=== PATIENT | female | born 1945 | race Caucasian/White ===

== ENCOUNTER 2019-05-19 09:02 | Outpatient (CLI) | payer MEDICARE, SELFPAY ==
--- NOTE | 2019-05-19 09:21 | CT_ITS ---
WS: [id number] CT scan of the neck. Additional two-dimensional coronal and sagittal reconstruction was performed. 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 DLP: 670.[address] scans at [facility] use at least one of these dose optimization techniques: automat ed exposure control; mA and/or kV adjustment per patient size (includes targeted exams where dose is matched to clinical indication); or iterative reconstruction. Findings: No lymphadenopathy is noted. The salivary glands are unremarkable. There is no prevertebral soft tiss ue swelling. The larynx is symmetric. The thyroid gland shows normal enhancement. The floor of the mo uth and parapharyngeal spaces are normal. The oral cavity is unremarkable. The carotid arteries bifurcate normally. 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 The lung apices show no abnormalities. The portions of the intracranial circulation which are seen d emonstrate no abnormalities. No erosion of the skull or skull base is seen. A right mastoidectomy has been performed. CT/CT neck w con* [id number] Impression: 1. Negative for significant soft tissue abnormalities the neck. 2. Right mastoidectomy.
--- NOTE | 2019-05-19 09:21 | FL_ITS ---
WS: [id number] Modified barium swallow, 05/19/2019 Clinical Data: Other dysphagia Comparison: None. Fluoroscopy time: 2.2 minutes. Findings: Good bolus propulsion for thin and thick liquids occurred. There was slight vallecular and piriform s inus pooling but the pooling cleared with multiple swallows and different consistencies of liquids. P udding bolus propelled the barium tablet into the esophagus. There is no evidence of any esophageal p roblems. FL/FL barium swallow modifd [id number] Impression: 1. Good bolus propulsion with minimal vallecular and piriform sinus pooling. 2. No aspiration or penetration was noted.
[2019-05-19 10:07] LABS: Blood Urea Nitrogen 13 mg/dL (8-23)
[2019-05-19] MEDS: iodixanol 320 mg/mL 100mL Btl IV (10:34)
== END 2019-05-19 09:03 | disposition home or self-care (01) ==
LOC: RAD 09:03
PROVIDERS: Family Provider Family Medicine; PCP Family Medicine; Visit Provider Specialist
DX: C02.9 Malignant neoplasm of tongue, unspecified (principal); R49.8 Other voice and resonance disorders; J38.7 Other diseases of larynx
CPT/HCPCS: 70491; 74230; 82565; 84520; 92611

== ENCOUNTER 2020-01-10 08:51 | Outpatient (CLI) | payer MEDICARE, SELFPAY ==
--- NOTE | 2020-01-10 09:20 | MR_ITS ---
WS: [id number] MRI LEFT SHOULDER NONCONTRAST TECHNIQUE: Sagittal T2, coronal T1, T2 and proton density imaging. Axial gradient PDE imaging. CLINICAL INFORMATION: LEFT ROTATOR CUFF SYNDROME COMPARISON: None. FINDINGS: Moderate to advanced arthritis at the AC joint with mild downsloping acromion. Slight subacromial spu rring. Mild edema at the AC joint. Diffuse chronic thinning of the supraspinatus which is intact. Mild tendinopathy in the distal supras pinatus.Normal infraspinatus. Normal teres minor. Normal subscapularis. Normal biceps tendon in the b icipital groove. Degenerative fraying of the glenoid labrum which appears intact. Biceps labral ancho r appears intact. Hypertrophic spurring along the medial humeral head. MR/MR shoulder LT wo con* [id number] IMPRESSION: 1. Moderate degenerative arthritis at the AC joint with mild downsloping acrom ion. 2. Tendinopathy in the distal supraspinatus with chronic thinning. No full-thi ckness rotator cuff tears. Rotator cuff is otherwise intact. 3. Normal biceps tendon and biceps labral anchor. 4. Degenerative fraying glenoid labrum. 5. Hypertrophic spurring along the medial humeral head.
== END 2020-01-10 08:52 | disposition home or self-care (01) ==
LOC: RADWPI 09:01
PROVIDERS: Family Provider Family Medicine; PCP Family Medicine; Visit Provider Family Medicine
DX: M75.102 Unspecified rotator cuff tear or rupture of left shoulder, not specified as traumatic (principal); M19.012 Primary osteoarthritis, left shoulder
CPT/HCPCS: 73221

== ENCOUNTER → 2020-02-19 11:56 | Outpatient (BNVA) | payer MEDICARE, SELFPAY | PROVIDERS: Family Provider Family Medicine; PCP Family Medicine; Referring Provider Family Medicine; Visit Provider Specialist | DX: M19.012 Primary osteoarthritis, left shoulder (principal); M25.512 Pain in left shoulder | CPT/HCPCS: 73030 ==

== ENCOUNTER 2020-03-06 06:00 | Outpatient (RCR) | payer MEDICARE, SELFPAY | END 2020-03-09 23:59 | disposition home or self-care (01) | LOC: SPT 06:00 | PROVIDERS: PCP Family Medicine; Referring Provider Specialist; Visit Provider Specialist | DX: M25.512 Pain in left shoulder (principal) | CPT/HCPCS: 97110; 97163 ==

== ENCOUNTER → 2020-04-14 10:21 | Outpatient (BNVA) | payer MEDICARE, SELFPAY | PROVIDERS: PCP Family Medicine; Visit Provider Specialist | DX: M19.012 Primary osteoarthritis, left shoulder (principal); M75.82 Other shoulder lesions, left shoulder | CPT/HCPCS: 87635 ==

== ENCOUNTER 2020-04-19 07:00 | Day surgery (SDC) | payer MEDICARE, SELFPAY ==
[2020-04-18 13:55] VITALS: BMI 35.4
[2020-04-19] VITALS (10 sets, daily range): BP systolic 157–191; BP diastolic 73–104; PULSE 60–83; RESP 16–20; TEMP 36.1–36.5; O2SAT 96–100
[2020-04-19] MEDS: sodium chloride 0.9% 1,000 ML 30 ML IV (07:40)
[2020-04-19] MEDS: midazolam 1 mg/mL INJ 5 ML 5 MG IVP (07:45)
--- NOTE | 2020-04-19 08:07 | P.HPUD_ITS ---
Surgery/Procedure H&P Update DATE OF PROCEDURE: April 19, 2020 DATE H&P PERFORMED: 04/18/20 H&P UPDATE INFORMATION: I have reviewed H&P completed within last 30 days, I have examined patient prior to procedure, No changes to prior documentation and H&P is in [facility] EMR on date indicated PREOP DIAGNOSIS: Left shoulder AC DJD with impingement PLANNED PROCEDURE: Operation Date: 04/19/20 09:15 Proposed Procedures p Left Acromioplasty left shoulder with distal clavicle resection 54482 M19.012 M75.82(Left) - Ashley Gupta MD s Distal Clavicle Resection(Left) - Ashley Gupta MD Related Problem List Diagnoses (1) Osteoarthritis of left acromioclavicular joint: (2) Impingement syndrome, shoulder, left:
--- NOTE | 2020-04-19 08:15 | ANES.PREANE2 ---
Pre-Anesthetic Assessment Pre-Anesthetic Assessment: Height/Weight: Height 1.6 m Weight 90.718 kg Temp Pulse Resp BP Pulse Ox 97.7 F 82 18 191/92 98 04/19/20 07:18 04/19/20 07:18 04/19/20 07:18 04/19/20 07:18 04/19/20 07:18 Preop Diagnosis: Left shoulder AC DJD with impingement Proposed Procedure: Operation Date: 04/19/20 09:15 Proposed Procedures p Left Acromioplasty left shoulder with distal clavicle resection 92752 M19.012 M75.82(Left) - Ashley Gupta MD s Distal Clavicle Resection(Left) - Ashley Gupta MD Familial anesthetic complications: shivering Was Beta William taken within 24 hours: N/A Last intake: Intake Last Liquid Date 04/18/20 Last Liquid Time 19:00 Last Solid Date 04/18/20 Last Solid Time 17:00 Social: Social History: No alcohol and No tobacco Exam: Pre-Anes Outpt Exam: alert, oriented x 3, clear to auscultation bilaterally and regular rate & rhythm Airway: MP: 3 Dentition: Full CV/HEM: CV/HEM: CAD (stents X2 last placed > 1 year ago) Comments: Patient quit plavix on the , she has been off longer than 7 days because her surgery had to be rescheduled GI: GI: GERD Musc/skel: Comments: hx throat cancer 5 years ago, has since been intubated. Most recent neck CT (2019) without any gross abnormalities Anesthetic Plan: ASA status: 3 Risk of > 500 ml blood loss (7ml/kg in children): No Meds/Allergies Current Medications: Current Medications Generic Name Dose Route Start Last Admin Trade Name Freq PRN Reason Stop Dose Admin Sodium Chloride 1,000 mls @ 30 ml s/hr 04/19/20 07:15 04/19/20 07:40 Sodium Chloride 0.9% IV 04/20/20 07:14 30 mls/hr .Q24H KAMINI Administration PFSH Anesthesia PFSH: Social History Smoking and tobacco status: never smoked Alcohol intake: current Alcohol intake frequency: holidays/special occasions only Data Anesthesia CBC & Chem 7: 04/19/20 08:00 04/19/20 08:00 Cardiac Studies: No Data to Display
[2020-04-19 08:25] LABS: Add Urine Microscopic? YES; Bilirubin Urine Neg (Negative); Blood Urine 3+ (Negative); Glucose Urine UA Norm (Normal); Ketones Urine 1+ (Negative); Leukocyte Esterase Urine Negative (Negative); Nitrate Urine Negative (Negative); Protein Urine Neg (Negative); Specific Gravity, Urine 1.015 (1.005-1.030); Urine Appearance Clear (CLEAR); Urine Color Yellow (Yellow); Urobilinogen Urine Norm (Negative)
[2020-04-19 08:26] LABS: Add Urine Culture? Yes; Bacteria Urine TRACE /hpf; Mucus Urine 1+ /hpf; Squamous Epithelial Cell Urine 0-4 /hpf (0-5)
[2020-04-19 08:28] LABS: Alanine Aminotransferase 7 U/L (0-33); Albumin Level 4.2 g/dL (3.5-5.2); Alkaline Phosphatase 52 IU/L (35-105); Aspartate Amino Transferase 18 U/L (0-32); Blood Urea Nitrogen 10 mg/dL (8-23); Calcium 9.3 mg/dL (8.5-10.5); Carbon Dioxide 25 mmol/L (22-29); Chloride 104 mmol/L (98-107); Globulin 2.6 g/dL (1.3-4.6); Glucose 102 mg/dL (65-115); Osmolality Calculated 289 mOsm/kg (285-295); Sodium 140 mmol/L (136-145); Total Bilirubin 0.3 mg/dL (0.15-1.2); Total Protein 6.8 g/dL (6.6-8.7)
[2020-04-19] MEDS: vancomycin 1,000 MG in sodium chloride 0.9% 250 ML 250 MG IV (08:45)
--- NOTE | 2020-04-19 09:33 | ANES.PROC ---
Anesthesia Procedures Procedure/Date: 04/19/20 Nerve Block ^: Nerve Block 1: Main Anesthesia: general anesthesia Time Out Performed: Yes Consent: requested by attending/covering physician, from patient, risks and benefits reviewed and patient agrees to proceed Nerve block location: interscalene (L) Anesthesia monitors applied: pulse oximetry, EKG, BP cuff and oxygen Nerve block position: semi sitting Anesthetic Used: ropivicaine 0.5% and with decadron (4 mg) Amount of anesthesia used (mL): 20 Ultrasound used to: recognize landmarks, visualize and ID brachial plexus and visualize and ID interscalene groove Nerve Stimulator Used?: No Interscalene/Femoral BLK: 2 stimuplex 22 g needle used for position and inplane approach, visualize local anesthetic spread and no vascular puncture identified Injection: neg aspiration of heme and paresthesia +/- Patient Tolerated Procedure: no complications Complications: none
[2020-04-19] MEDS: vancomycin 1,000 MG SDV 1000 MG XX (09:52)
[2020-04-19 10:15] LABS: Basophils % 0.4 %; Eosinophils # 0.1 10^3/uL (0.0-0.8); Eosinophils % 1.9 %; Hematocrit 38.5 % (37.0-47.0); Hemoglobin 11.5 g/dL (11.5-15.3); Lymphocytes # 1.3 10^3/uL (0.8-4.8); Lymphocytes % 27.6 %; Mean Corpuscular HGB Conc 29.9 g/dL (30.0-36.0); Mean Corpuscular Hemoglobin 28.1 pg (28.0-34.0); Mean Corpuscular Volume 94.1 fL (81-99); Monocytes # 0.4 10^3/uL (0.2-0.9); Monocytes % 9.5 %; Neutrophils % 60.4 %; Nucleated Red Blood Cells % 0 %; Platelet Count 185 10^3/cmm (130-400); Red Blood Count 4.09 10^6/uL (4.1-5.3); Red Cell Distribution Width 14.7 % (12.1-15.1); White Blood Count 4.6 10^3/uL (4.0-10.0)
--- NOTE | 2020-04-19 11:24 | PM.OP ---
Operative Report Date of procedure: April 19, 2020 Pre-op Diagnosis: Left shoulder acromioclavicular osteoarthritis with impingement Post-op diagnosis: same Post-op Findings: Severe degenerative osteoarthritis acromioclavicular joint with impingement from the acromion Procedure Done: Left shoulder acromioplasty with distal clavicle resection Specimens removed/disposition: None Pathology: none sent Surgeon: Ashley Gupta Breaker Machine Operator: [facility] OR technicians Anesthesia: General (Intubated, ASA 3, with supplemental axillary block) Estimated blood loss (mL): 10 IV fluids (mL): 1,000 Urine output (mL): 0 Urine output: No Payne Complications: None Findings: Severe degenerative osteoarthritic changes within the acromioclavicular joint with expansion and impingement. Additionally, impingement from the acromion. No evidence of rotator cuff tear. Condition: stable Disposition: PACU (Then to same-day surgery for discharge to home.) Brief History: This 75-year-old woman presented with complaints of significant left shoulder pain. Imaging demonstrated that she did have significant degenerative osteoarthritis of the acromioclavicular joint and impingement from acromial spurring. There was no evidence on imaging of rotator cuff tear. The patient wished to proceed with operative intervention. Risks and complications were discussed with her and consents were signed preoperatively. Questions were answered. Procedure: The patient was brought to the operating theater and underwent general intubated, ASA 3, anesthesia. The patient was placed in a beachchair position and subsequently the left upper extremity was prepped and draped in the usual fashion utilizing DuraPrep. The arm was draped free. A surgical pause was performed prior to commencement of the surgical procedure. At the time of the surgical pause, we confirmed the site and side of surgery as well as administration of appropriate preoperative antibiotics vancomycin 1 g. MRI was also reviewed at that time. Following the surgical pause, an incision was made at approximately the level of the acromioclavicular joint extending across the anterolateral corner of the acromion and distally as necessary. Care was taken to avoid injury to the axillary nerve by limiting the distal extent of the incision. Dissection continued through skin and soft tissues using a scalpel. Hemostasis was obtained using electrocautery. Soft tissues were elevated off the acromion. An acromioplasty was then accomplished using a combination of a saw and a power rasp. With this, we were able to remove compression caused by the acromion. A bursectomy was also accomplished. The rotator cuff was then evaluated to look for tears. There was no evidence of acute or chronic rotator cuff tear. After the rotator cuff had been thus evaluated, the shoulder was placed through further range of motion to assure there was no further evidence of rotator cuff tear or impingement. The acromioclavicular joint was exposed. A saw was then used to resect the distal clavicle without difficulty. The undersurface of the clavicle was palpated and was slightly further debrided. A power rasp was used to further smooth the area. When this was felt to be adequately resected, the wound was irrigated. Attention was then directed to closure. The wound was irrigated and closure was accomplished with 0 Vicryl in the capsular tissues overlying the acromioclavicular joint area as well as over the acromion and down into the deltoid muscle. 2-0 Monocryl was used to close the subcutaneous tissues followed by 4-0 Monocryl subcuticular closure. This was followed by Exofin, Steri-Strips, Telfa, and Tegaderm. The patient was placed in a sling and was returned to the recovery room in satisfactory condition. The patient will be discharged to home to follow-up with me in the office as scheduled. There were no complications and no specimens. Associated Problem List Diagnoses (1) Impingement syndrome, shoulder, left: (2) Osteoarthritis of left acromioclavicular joint:
--- NOTE | 2020-04-19 17:13 | ANE.PACU2 ---
Inpatient post-anesthesia follow up: Airway intact: Yes Vital signs: Temperature 97.7 F Pulse Rate 61 Respiratory Rate 18 Blood Pressure 184/87 Pulse Oximetry 96 Oxygen Delivery Me thod Room Air Oxygen Flow Rate 2 Fraction of Inspir ed Oxygen Hydration adequate: Yes Nausea and vomiting: No Pain level: 2 Mental status: Baseline
== END 2020-04-19 11:45 | disposition home or self-care (01) ==
PROVIDERS: PCP Family Medicine; Visit Provider Specialist
PROC: (CPT 23130; principal; 2020-04-19 09:15)
PROC: (CPT 23120; 2020-04-19 09:15)
DX: M19.012 Primary osteoarthritis, left shoulder (principal); M75.42 Impingement syndrome of left shoulder; I25.10 Atherosclerotic heart disease of native coronary artery without angina pectoris; Z95.5 Presence of coronary angioplasty implant and graft; Z79.02 Long term (current) use of antithrombotics/antiplatelets; K21.9 Gastro-esophageal reflux disease without esophagitis; Z85.89 Personal history of malignant neoplasm of other organs and systems
CPT/HCPCS: 23120; 23130; 12345; 36415; 64415; 76942; 80053; 81001; 85025; 87086; 96365; J0131; J0330; J1100; J2250; J2405; J2704; J2710; J2795; J3010; J3370; J3490; J7030

== ENCOUNTER → 2020-04-29 09:10 | Outpatient (BNVA) | payer MEDICARE, SELFPAY | PROVIDERS: PCP Family Medicine; Visit Provider Specialist | DX: M19.012 Primary osteoarthritis, left shoulder (principal); M75.82 Other shoulder lesions, left shoulder; Z98.890 Other specified postprocedural states | CPT/HCPCS: 73030 ==

== ENCOUNTER → 2020-05-13 11:40 | Outpatient (BNVA) | payer MEDICARE, SELFPAY | PROVIDERS: PCP Family Medicine; Visit Provider Specialist | DX: M19.012 Primary osteoarthritis, left shoulder (principal); M75.82 Other shoulder lesions, left shoulder; Z98.890 Other specified postprocedural states; M75.42 Impingement syndrome of left shoulder | CPT/HCPCS: 73030 ==

== ENCOUNTER 2020-05-22 06:00 | Outpatient (RCR) | payer MEDICARE, SELFPAY | END 2020-06-09 23:59 | disposition home or self-care (01) | LOC: APT 06:00 | PROVIDERS: PCP Family Medicine; Referring Provider Specialist; Visit Provider Specialist | DX: Z47.89 Encounter for other orthopedic aftercare (principal) | CPT/HCPCS: 97110; 97163 ==

== ENCOUNTER 2020-06-10 06:00 | Outpatient (RCR) | payer MEDICARE, SELFPAY | END 2020-07-07 23:59 | disposition home or self-care (01) | LOC: APT 06:00 | PROVIDERS: PCP Family Medicine; Referring Provider Specialist; Visit Provider Specialist | DX: Z47.1 Aftercare following joint replacement surgery (principal); Z96.612 Presence of left artificial shoulder joint | CPT/HCPCS: 97110 ==

== ENCOUNTER 2020-07-08 06:00 | Outpatient (RCR) | payer MEDICARE, SELFPAY | END 2020-08-07 23:59 | disposition home or self-care (01) | LOC: APT 06:00 | PROVIDERS: PCP Family Medicine; Referring Provider Specialist; Visit Provider Specialist | DX: Z47.89 Encounter for other orthopedic aftercare (principal) | CPT/HCPCS: 97110 ==

== ENCOUNTER 2021-07-28 07:51 | Outpatient (CLI) | payer MEDICARE, SELFPAY ==
[2021-07-28 08:27] VITALS: BMI 36.6
--- NOTE | 2021-07-28 09:26 | ECG_ITS ---
[facility] Test Date: 2021-07-28 Pat Name: John Adams Department: Room: Gender: Female Sap Basis: Caitlyn Bundy : 1945 Requested By: Jonathan Martinez Order Number: [id number] Lee MD: Aidee Bowens M.D. Interpretive Statements NAME OF STUDY: LEXISCAN SESTAMIBI STRESS TEST INDICATION: Chest Pain PROCEDURE: At the baseline, the blood pressure was 152/72 mmHg, oxygen saturation 92% with a heart rate of 58 bpm. The electrocardiogram showed normal sinus rhythm, normal axis with nonspecific T wave changes. The Lexiscan was infused over a period of 20 seconds. A total of 0.4 milligrams of Lexiscan was infused. The stress phase was continued for a total of 5 minutes. Heart rate at the end of the stress phase was 72 bpm, oxygen saturation 93% with a blood pressure of 158/75 mmHg. The EKG at the peak infusion revealed no significant ST-T wave changes. Sestamibi was injected 20 seconds after the Lexiscan infusion. Blood pressure at the end of the recovery phase was 159/82 mmHg, oxygen saturation 94% with a heart rate of 68 beats per minute. CONCLUSION: 1. No significant EKG changes with the LexiScan infusion. 2. No LexiScan induced chest pain or cardiac arrhythmia. 3. Normal blood pressure and heart rate response. 4. Sestamibi/sestamibi perfusion scan pending; see separate report. Electronically Signed On 07-31-2021 16:40:52 CDT by Aidee Bowens M.D. [email or web address]
--- NOTE | 2021-07-28 09:28 | NMCV_ITS ---
NM radha perf SPECT r/s* [id number] John Adams Age: 76 Gender: F : 1945 Exam Date: 07/28/2021 09:53 Ordering Phys: Jonathan Bansal MD Technologist: TURNER Donald Exam Location: [facility] Indications: CHEST PAIN STRESS TEST Please see separate stress test report in [facility] for full findings IMAGE PROTOCOL Rest/Stress 1 Lexiscan Day Radiopharmaceutical Dose (mCi) Administration Site Administered by Rest: Tc-99m 10.6 IV TURNER Donald Sestamibi Stress:Tc-99m 32.4 IV TURNER Soriano Sestamibi Rest: 28-Jul-2021 60 Discovery 630 Stress: 28-Jul-2021 30 Discovery 630 0.4mg Lexiscan. Supine position only as patient was unable to lay prone. SPECT RESULTS Technical Quality: Good Raw Data Analysis: Normal Image Corrections: No attenuation or motion correction applied Summed Stress Score: 8 Summed Rest Score: 5 Summed Difference Score: 3 PERFUSION FINDINGS Small size perfusion abnormality of mild severity of apical septal, apical lateral and apical marrero on rest images with reversibility in apical anterior, apical lateral and apical inferior marrero on supine stress images. FUNCTIONAL RESULTS (calculated via Gated SPECT) Stress Image LV EF (%): 77 Stress EDV (mL):61 TID: 1 Stress ESV (mL):14 FUNCTIONAL FINDINGS: The left ventricle is normal in size. Transient Ischemia Dilatation of 1. The left ventricular ejection fraction is normal with a value of 77%. There is apical hypokinesis. IMPRESSIONS 1. Small sized partially reversible perfusion abnormality of mild to moderate severity of apical septal, apical lateral, apical inferior, apical anterior and apical marrero. 2. This represents old myocardial infarction in left anterior descending artery territory with mild edelmira-infarct ischemia. 3. The left ventricular ejection fraction is normal with a value of 77%. 4. There is apical hypokinesis. 5. No significant EKG changes with Lexiscan infusion. Refer to separate report for details. Aidee Bowens MD (Electronically Signed) Final Date: 31 July 2021 16:49 S
[2021-07-28] MEDS: regadenoson 0.4 Mg/5 ml Syringe IVP (10:35)
[2021-07-28] MEDS: aminophylline 25 mg/mL SDV 10 mL IVP (10:51)
[2021-07-28 10:57] VITALS: BP 159/82; PULSE 68
== END 2021-07-28 07:52 | disposition home or self-care (01) ==
LOC: CDL 07:54
PROVIDERS: PCP Family Medicine; Visit Provider Family Medicine
DX: R07.9 Chest pain, unspecified (principal); I25.10 Atherosclerotic heart disease of native coronary artery without angina pectoris; R06.02 Shortness of breath
CPT/HCPCS: 78452; 93017; A9500; J0280; J2785

== ENCOUNTER → 2021-08-13 10:36 | Outpatient (BNVA) | payer MEDICARE, SELFPAY | PROVIDERS: PCP Family Medicine; Visit Provider Internal Medicine Cardiovascular Disease | DX: I25.10 Atherosclerotic heart disease of native coronary artery without angina pectoris (principal); E78.5 Hyperlipidemia, unspecified; I11.0 Hypertensive heart disease with heart failure; I50.9 Heart failure, unspecified; R94.39 Abnormal result of other cardiovascular function study | CPT/HCPCS: 99214 ==

== ENCOUNTER → 2021-08-25 09:08 | Outpatient (BNVA) | payer MEDICARE, SELFPAY | PROVIDERS: PCP Family Medicine; Visit Provider Internal Medicine Cardiovascular Disease | DX: I25.10 Atherosclerotic heart disease of native coronary artery without angina pectoris (principal); I50.9 Heart failure, unspecified | CPT/HCPCS: 80048; 83735; 83880 ==

== ENCOUNTER → 2021-08-27 12:21 | Outpatient (BNVA) | payer MEDICARE, SELFPAY | PROVIDERS: PCP Family Medicine; Visit Provider Nurse Practitioner Family | DX: R94.39 Abnormal result of other cardiovascular function study (principal); I11.0 Hypertensive heart disease with heart failure; I50.9 Heart failure, unspecified; Z79.82 Long term (current) use of aspirin | CPT/HCPCS: 99214 ==

== ENCOUNTER → 2021-09-17 11:14 | Outpatient (BNVA) | payer MEDICARE, SELFPAY | PROVIDERS: PCP Family Medicine; Visit Provider Internal Medicine Cardiovascular Disease | DX: I25.10 Atherosclerotic heart disease of native coronary artery without angina pectoris (principal); I11.0 Hypertensive heart disease with heart failure; I50.9 Heart failure, unspecified; E78.5 Hyperlipidemia, unspecified; R94.39 Abnormal result of other cardiovascular function study; M19.012 Primary osteoarthritis, left shoulder | CPT/HCPCS: 80048; 85025; 85610; 99215 ==

== ENCOUNTER 2021-09-19 10:50 | Day surgery (SDC) | payer MEDICARE, SELFPAY ==
[2021-09-19] MEDS: diphenhydrAMINE 50 mg Capsule PO (11:22)
[2021-09-19 11:28] VITALS: BP 210/106; PULSE 69; RESP 16; TEMP 36.7; O2SAT 97; BMI 37.1
--- NOTE | 2021-09-19 12:00 | XACV_ITS ---
Exam Room: 2 Ht: 157 cm Wt: 92 kg BSA: 2.05 m2 Gender: Female : 1945 Any Known Allergies: Penicillins Exam Priority: Routine Procedure(s): Procedure Description: Diagnostic procedure Procedure Description: Coronary Angiography Diagnostic Cath Status: Elective Diagnostic Findings * Angiography shows a right coronary dominant system. * Short left main with no disease. * Normal caliber circumflex artery with 2 major obtuse marginal branches. Mild 20% narrowing in proximal circumflex artery before takeoff of first obtuse marginal. * Normal caliber proximal left anterior descending artery with patent stents in proximal and mid segments of left anterior descending artery. The mid to distal segment of artery is small in caliber without any stenosis. One major diagonal branch. * Normal caliber right coronary artery with minor luminal irregularities. Conclusions 1. Angiography shows a right coronary dominant system. 2. Patent left anterior descending artery stents. 3. No significant stenosis in left anterior descending, left circumflex and right coronary arteries. Recommendations * Continue current medical management and risk factor modification. Pressures Phase:Rest AO : 135 / 82 ( 106 ) @ 12:56:00 PM 141 / 86 ( 111 ) @ 12:58:00 PM 137 / 82 ( 106 ) @ 12:59:00 PM 139 / 83 ( 108 ) @ 1:01:00 PM Hemodynamic Findings Aortic valve not crossed. Clinical Evaluation EBL: 5mL-10mL Procedural Details Pre-Procedure Time Out. Identified patient by full name and date of as verbalized by the patient/guarantor. Does the consent match the physician's order: Yes. Accurate & Complete Informed Consent: Yes. Inpatient/Outpatient History & Physical on Chart: Yes. If H&P is completed, is and addenduem needed: No; If yes, is the addendum complete: N/A. Visualize and Verify Site with Patient/Guarantor: N/A. Relevant Radiology Images available: Yes. Pre-op teaching completed and patient verbalized understanding. The risks, benefits, and alternatives of sedation and/or procedure were discussed by physician. The patient agrees to continue. Procedure started. [facility] Clinical Fraility Score: 5: Mildly Frail. Collections Associate Indications: Other. Correct patient, site and procedure confirmed by cath team. PERRLA. Strong, equal hand high school teacher bilaterally. Lungs clear x 5 lobes. IV Site on Arrival: 18 gauge in the right anticubital. A 18 gauge IV was started in the right anticubital using aseptic technique. IV Fluids: 0.9% NaCl at KVO. 0 mL infused prior to propagator laborer. Pre Procedural Pulses: bilateral dorsalis pedis was 2+. Pre Procedural Pulses: bilateral posterior tibial was 1+. Oxygen started at 2liters/min via nasal canula. bilateral groins was prepped with chloroprep then draped in the usual sterile fashion. Baseline sample Acquired. HR: 66 BPM. Physician notified. Physician arrived. Physician scrubbed in. Immediate Pre-Procedure Time Out. Correct Patient: Yes; Correct Procedure: Yes; Correct Site: Yes; Correct Patient Position: Yes; Correct Supplies: Yes; Dried Flammable Prep: Yes; Blood Products Available: No;. Lidocaine 1% infiltrated to the right radial. Arterial access obtained. A 5 azerbaijani TIG catheter in over wire. Multiple views taken of left coronary artery. Physician review of cine films. Catheter redirected to the RCA. Catheter removed over the standard wire. A 5 azerbaijani JR4 catheter in over wire. Multiple views taken of right coronary artery. Catheter removed over the standard wire. A 5 azerbaijani Angled Pig catheter in over wire. wire out. glidewire inserted through the catheter. Catheter removed over the glide wire. A 5 azerbaijani JR4 catheter in over wire. Catheter removed over the standard wire. A TR Band was successful obtaining hemostatsis at the Right Radial artery insertion site. TR band placed. Hemostasis obtained. Post Procedure: Pulses reassessed and unchanged. PERRLA. Strong, equal hand high school teacher bilaterally. No VTE prophylaxis required. Total IV fluids: 73 mL. Medication's Wasted: Lidocaine 1% = 8 mL. Medication's Wasted: Nitro = 49.8 mg. Medication's Wasted: Heparin = 1000 units. Contrast type used: Omnipaque 300 mgI/mL, 500 mL bottle. Complications: None. Estimated blood loss: 5mL-10mL. Responsiveness - Normal response to verbal stimuli; alert and oriented, PERRLA. Airway - Unaffected, no intervention required; spontaneous ventilation. Circulation: W/N/L, pulses unchanged. Nausea/Vomiting: No. Procedure completed. Vital chart was stopped. Patient transferred by bed to 1st floor. Access Site Site: Right Radial artery Sheath Size: 6 Fr Hemostasis Method: TR Band Hemostasis Success: Successful Procedure Medications Start: 11:37 AM Stop: 11:37 AM Medication: Versed Amount: 1 mg Route: I.V. Start: 11:47 AM Stop: 11:47 AM Medication: Versed 1 mg and Fentanyl 25 mcg Amount: 1 Route: I.V. Start: 11:56 AM Stop: 11:56 AM Medication: Heparin Amount: 5000 units Route: I.V. Start: 12:20 PM Stop: 12:20 PM Medication: Fentanyl Amount: 25 mcg Route: I.V. I, the attending physician, have reviewed and verified all procedure medications. Yes, all medications given per verbal order History/Risk Factors Hypertension: Yes Dyslipidemia: Yes Peripheral Arterial Disease (PAD): No Myocardial Infarction (MO): Yes Obesity: No Renal Disease: No Tobacco Use: Never Prior Interventions PCI: Yes CABG: No Valve Surgery: No Date of PCI: 03/27/2018 Report Signatures Finalized by Aidee Bowens MD on 09/22/2021 04:07 PM
--- NOTE | 2021-09-19 12:35 | W.PM.OPSUD ---
Surgery/Procedure H&P Update DATE OF PROCEDURE: September 19, 2021 DATE H&P PERFORMED: 09/17/21 PREOP DIAGNOSIS: Exertional shortness of breath, abnormal stress test PLANNED PROCEDURE: Operation Date: 09/19/21 12:00 Proposed Procedures p Cardiac CatheterizationLw/w/o 52889/R06.02/I50.9(Not Applicable) - Aidee Bowens MD PATIENT REASSESSED PRIOR TO SEDATION, WITH NO CHANGE NOTED: Yes PHYSICAL EXAM: alert, oriented x 3, clear to auscultation bilaterally and regular rate & rhythm AIRWAY EVAL/ANESTHESIA PLAN: normal airway, ASA III, Risks, benefits & alternatives of sedation and/or procedure discussed and Patient agrees to continue as planned
[2021-09-19 12:45] VITALS: BP 150/85
--- NOTE | 2021-09-19 12:51 | USCV_ITS ---
John Adams Age: 76 Gender: F : 1945 Exam Date: 09/19/2021 15:33 Ordering Phys: Aidee Bowens MD ([email or web address]) Technologist: JEVON [place] [facility] [place]: EXERTIONAL SHORTNESS OF BREATH BP: 143 / 61 HR: 67 Rhythm: Sinus Technical Quality: Adequate MEASUREMENTS (Male / Female) Normal Values 2D ECHO LVOT Diameter 2.0 cm LV Ejection Fraction MOD 2C 62.9 % LV Ejection Fraction 2C AL 62.3 % LA Diameter 3.4 cm LA Width 2.9 cm LA Height 4.4 cm RA Width 3.3 cm RA Height 3.7 cm Aorta at Sinotubular Diameter 2.4 cm M-MODE Aortic Annulus Diameter 2.7 cm LA Ao Ratio MM 1.2 DOPPLER AV Peak Velocity 145.0 cm/s LVOT Peak Velocity 91.0 cm/s AV Area Cont Eq vti 2.5 cm squared AV Area Cont Eq pk 2.0 cm squared MV Peak Velocity 123.0 cm/s MV Area PHT 3.1 cm squared Mitral E to A Ratio 0.7 MV E' Velocity 40.5 cm/s Mitral E to MV E' Ratio 12.9 Mitral E to LV E' Lateral Ratio 14.6 Mitral E to LV E' Septal Ratio 11.7 TV Peak E Velocity 51.0 cm/s Right Atrial Pressure 8.0 mmHg PV Peak Velocity 88.0 cm/s RV Acceleration Time 0.1 s RV Ejection Time 0.3 s RV AcT/ET 0.2 FINDINGS Left Ventricle Normal left ventricular size and systolic function. Left ventricular ejection fraction is estimated at 62 %. There is mild hypokinesis of apical septal wall. Grade I diastolic dysfunction (abnormal relaxation filling pattern), normal to mildly elevated filling pressures. Right Ventricle Normal right ventricular size and systolic function. Normal right ventricular systolic pressure. Right Atrium Right atrium not well visualized. Normal right atrial size. Left Atrium Mildly increased left atrial size. Mitral Valve Mild mitral annular calcification. No mitral valve stenosis. No mitral valve regurgitation. Aortic Valve Aortic valve not well visualized. No aortic valve stenosis. No aortic valve regurgitation. Tricuspid Valve Structurally normal tricuspid valve. No tricuspid valve stenosis. Trace tricuspid valve regurgitation. Pulmonic Valve Pulmonic valve not well visualized. No pulmonary valve stenosis. No pulmonary valve regurgitation. Pericardium No pericardial effusion. Aorta Normal size aortic root and proximal ascending aorta. IVC IVC not well-visualized. CONCLUSIONS 1. This is a technically difficult study. Optison was used per protocol. 2. Normal left ventricular size and systolic function. Left ventricular ejection fraction is estimated at 62 %. There is mild hypokinesis of apical septal wall. Grade I diastolic dysfunction (abnormal relaxation filling pattern), normal to mildly elevated filling pressures. 3. Trace tricuspid valve regurgitation. 4. Normal pulmonary artery pressure. 5. When compared to previous study dated 04/06/2018, left ventricular systolic function seems to have improved. Aidee Bowens MD (Electronically Signed) Final Date: 22 Sep 2021 17:30 S
[2021-09-19 13:00] VITALS: BP 146/73; PULSE 64; RESP 14; O2SAT 94
[2021-09-19 13:15] VITALS: BP 149/71; PULSE 67; RESP 14; O2SAT 96
[2021-09-19] MEDS: sodium chloride 0.9% 1,000 ML 100 ML IV (13:55)
[2021-09-19] MEDS: perflutren protein-a microsphr 0.22 mg/mL SDV 3 mL IV (15:30)
[2021-09-19 15:59] VITALS: PULSE 66; O2SAT 94
[2021-09-19 16:28] VITALS: BP 134/76; PULSE 66; O2SAT 94
[2021-09-19 16:44] LABS: Chol HDL Ratio 4.87 mg/dL (0.0-4.40); Cholesterol 292 mg/dL (0-200); HDL Cholesterol 60 mg/dL (60-100); LDL Cholesterol Calculated 195 mg/dL (50-129); LDL HDL Ratio 3.25 RATIO (0.00-3.22); Magnesium 2.3 mg/dL (1.7-2.3); Thyroid Stimulating Hormone 8.79 uIU/mL (0.27-4.20); Triglycerides 183 mg/dL (0-150)
--- NOTE | 2021-09-19 17:00 | PC.NURSE ---
Discharge Note Patient discharged to home via private vehicle accompanied by . Discharge instructions reviewed with patient and/or customer counter representative. Mobile pharmacy medications and/or prescriptions provided. Educated pt on her discharge continued home meds and changed dose of her lasix. Pt verbalizes understanding. Belongings/home medications returned. Post angiogram home care instructions.
== END 2021-09-19 16:58 | disposition home or self-care (01) ==
LOC: CCL 10:51 → CSU 11:59
PROVIDERS: PCP Family Medicine; Visit Provider Internal Medicine Cardiovascular Disease
DX: R06.02 Shortness of breath (principal); I11.0 Hypertensive heart disease with heart failure; I50.9 Heart failure, unspecified; R94.39 Abnormal result of other cardiovascular function study; Z79.82 Long term (current) use of aspirin; E78.5 Hyperlipidemia, unspecified; Z82.49 Family history of ischemic heart disease and other diseases of the circulatory system; Z95.5 Presence of coronary angioplasty implant and graft
CPT/HCPCS: 36415; 80061; 83735; 84443; 93454; 96360; 99152; 99153; C1769; C1887; C1894; C8929; J1644; J2250; J3010; J3490; J7030; Q0163; Q9956; Q9967

== ENCOUNTER → 2021-09-30 10:11 | Outpatient (BNVA) | payer MEDICARE, SELFPAY | PROVIDERS: PCP Family Medicine; Visit Provider Nurse Practitioner Family | DX: Z09 Encounter for follow-up examination after completed treatment for conditions other than malignant neoplasm (principal); I25.10 Atherosclerotic heart disease of native coronary artery without angina pectoris; I11.0 Hypertensive heart disease with heart failure; I50.9 Heart failure, unspecified | CPT/HCPCS: 80048; 83735; 83880; 99214 ==

== ENCOUNTER → 2021-12-30 14:28 | Outpatient (BNVA) | payer MEDICARE, SELFPAY | PROVIDERS: PCP Family Medicine; Visit Provider Internal Medicine Cardiovascular Disease | DX: R94.39 Abnormal result of other cardiovascular function study (principal); I11.0 Hypertensive heart disease with heart failure; I50.9 Heart failure, unspecified; E78.5 Hyperlipidemia, unspecified; M19.012 Primary osteoarthritis, left shoulder; I25.10 Atherosclerotic heart disease of native coronary artery without angina pectoris | CPT/HCPCS: 99214 ==

== ENCOUNTER 2022-02-23 10:23 | Outpatient (CLI) | payer MEDICARE, SELFPAY ==
--- NOTE | 2022-02-23 11:00 | CT_ITS ---
WS: [id number] CT CHEST TECHNIQUE: Contrast enhanced CT of the chest with coronal and sagittal reformatted images. CLINICAL INFORMATION: dyspnea COMPARISON: None. DLP: 877.[address] scans at [facility] use at least one of these dose optimization techniques: automated e xposure control; mA and/or kV adjustment per patient size (includes targeted exams where dose is matc hed to clinical indication); or iterative reconstruction. FINDINGS: Moderate chronic emphysematous changes. No acute pulmonary infiltrates. No focal pneumonia or pleural fluid. No mediastinal or hilar lymphadenopathy. No axillary lymphadenopathy. Diffuse fatty infiltration of the liver. Small esophageal hiatal hernia. Adrenal glands are normal. C holecystectomy clips. Normal portal vein and splenic vein. Normal caliber upper abdominal aorta. Nimo ac and SMA are patent. CT/CT chest w con* [id number] IMPRESSION: 1. Mild chronic emphysematous changes. No acute pulmonary infiltrates. No foca l pneumonia pleural fluid. 2. Vascular calcification. Coronary calcification. 3. No mediastinal or hilar lymphadenopathy. 4. Prior cholecystectomy. 5. Small esophageal hiatal hernia.
[2022-02-23 11:32] LABS: Blood Urea Nitrogen 11 mg/dL (8-23)
[2022-02-23] MEDS: iohexol 350 mg/mL 100 mL Btl IV (11:51)
== END 2022-02-23 10:24 | disposition home or self-care (01) ==
LOC: RAD 10:24
PROVIDERS: PCP Family Medicine; Visit Provider Family Medicine
DX: R06.00 Dyspnea, unspecified (principal); J44.9 Chronic obstructive pulmonary disease, unspecified; K44.9 Diaphragmatic hernia without obstruction or gangrene; Z90.49 Acquired absence of other specified parts of digestive tract; I25.10 Atherosclerotic heart disease of native coronary artery without angina pectoris
CPT/HCPCS: 71260; 82565; 84520

== ENCOUNTER → 2022-05-13 12:29 | Outpatient (BNVA) | payer MEDICARE, SELFPAY | PROVIDERS: PCP Family Medicine; Visit Provider Family Medicine | DX: R49.0 Dysphonia (principal); I50.9 Heart failure, unspecified; J44.9 Chronic obstructive pulmonary disease, unspecified; E03.9 Hypothyroidism, unspecified; I25.10 Atherosclerotic heart disease of native coronary artery without angina pectoris; E78.5 Hyperlipidemia, unspecified | CPT/HCPCS: 80053; 80061; 84443 ==

== ENCOUNTER 2022-05-21 08:44 | Outpatient (CLI) | payer MEDICARE, SELFPAY | END 2022-05-21 08:45 | disposition home or self-care (01) | LOC: RT 08:48 | PROVIDERS: PCP Family Medicine; Visit Provider Family Medicine | DX: J44.9 Chronic obstructive pulmonary disease, unspecified (principal); R06.00 Dyspnea, unspecified | CPT/HCPCS: 94060; 94726; 94729; J7613 ==

== ENCOUNTER 2022-07-24 08:40 | Emergency (ER) | payer MEDICARE, SELFPAY ==
[2022-07-24 08:44] VITALS: BMI 37.5
[2022-07-24 08:48] VITALS: BP 159/86; PULSE 66; RESP 16; O2SAT 95
--- NOTE | 2022-07-24 08:52 | ED_ITS ---
HPI - Abdominal Pain General: Chief Complaint: Abdominal Pain Stated Complaint: low back pain/cramps Time Seen by Provider: 07/24/22 08:42 Source: patient Mode of arrival: ambulatory Limitations: no limitations History of Present Illness: Patient is a 77-year-old female presents to ED today after she was seen by BENTON Lamas and requested to come to the ED for evaluation. Patient states she is having lower back and abdominal cramping and pain. Timeline was somewhat difficult to pin down as she states symptoms have been intermittent for weeks but thinks they have worsened over the past several days. She states she is having a difficult time having bowel movements reporting constipation and small caliber stools. She states she has also noticed her stools have been dark and tarry in nature. She has no history of GI bleeds. She reports stool leakage with flatulence. Patient reports a previous history of bowel obstruction with subsequent colonic resection. Patient has no complaints of urinary symptoms. No fevers. She does report feeling a little nauseous but no episodes of emesis. MD elicited complaint: abdominal pain Pertinent past history: other (bowel obstruction/colon resection) Onset (ago): day(s) Pain Consistency: intermittent Location: RLQ, LLQ and Suprapubic Severity: moderate Quality: cramping Radiation: back Migration to: no migration Exacerbating factors: nothing Relieving factors: nothing Associated Symptoms: Reports change in bowel habits, constipation, GI cramping, hematochezia, melena and nausea; Denies chills, dysuria, fever(s), heartburn, hematemesis and vomiting Related Data: Patient : No Review of Systems Const: Denies: fever(s), chills, body aches, fatigue or malaise Card: Denies: chest pain Resp: Denies: dyspnea GI: Reports: abdominal pain, nausea, constipation, GI cramping, change in bowel habits, hematochezia and melena; Denies: vomiting, hematemesis, heartburn, mucus in stool, white/light colored stool or steatorrhea : Denies: flank pain, difficulty voiding, dysuria, urinary frequency, urinary urgency or urinary hesitancy Musc: Reports: back pain (cramps); Denies: neck pain, extremity pain, extremity swelling, joint pain or joint swelling Skin/Breast: Denies: rash Neuro: Denies: headache(s), numbness in extremities, weakness in extremities, sensory changes, difficulty walking or dizziness PFSH ED PFSH: Medical History Abnormal nuclear stress test Atherosclerosis of coronary artery CHF (congestive heart failure), NYHA class III COPD (chronic obstructive pulmonary disease) History of throat cancer HTN (hypertension) Hyperlipidemia Hypoglycemia Surgical History History of bowel resection History of coronary artery stent placement Hx of cholecystectomy Family History Mother Cancer Diabetes CAD (coronary artery disease) Family/Other Cancer Grandmother Diabetes Other Hypertension Social History Smoking and tobacco status: never smoked Alcohol intake: current Alcohol intake frequency: holidays/special occasions only Physical Exam Const: COMMON NORMALS: no acute distress, patient oriented x3, no limitations and alert GENERAL APPEARANCE: cooperative NUTRITIONAL APPEARANCE: obese ORIENTATION/CONSCIOUSNESS: Yes awake, Yes oriented to person, Yes oriented to place and Yes oriented to time HENMT: COMMON NORMALS: normocephalic and atraumatic HEAD & SCALP: normal to inspection, normocephalic and atraumatic Eye: COMMON NORMALS: no scleral icterus Neck/C-Spine: COMMON NORMALS: full ROM, no lymphadenopathy, supple and no meningeal signs Chest: COMMONS NORMALS: normal inspection of the chest Resp: COMMON NORMALS: normal respiratory effort and clear to auscultation bilaterally AUSCULTATION: clear to auscultation bilaterally Cardio: COMMON NORMALS: regular rate and regular rhythm RATE: regular rate RHYTHM: regular rhythm GI: COMMON NORMALS: Normal to inspection, nondistended, normoactive bowel sounds present, Soft to palpation, No hepatosplenomegaly present and no masses INSPECTION: Yes normal to inspection AUSCULTATION: Yes normoactive bowel sounds PALPATION: Yes Soft to palpation, Yes Tenderness to palpation present (GI) (across lower abdomen ), No Guarding due to palpation present (GI), No Rigid due to palpation and Yes No hepatosplenomegaly present RECTAL EXAM: visual inspection normal, heme negative stool and other (large amount of soft stool palpated in rectal vault ) : COMMON NORMALS: Yes no CVA tenderness BLADDER/KIDNEY EXAM: Yes no CVA tenderness Back/Pelvis: COMMON NORMALS: no CVA tenderness, thoracic and lumbar spine normal to inspection, no thoracic nor lumbar tenderness and thoraco-lumbar ROM normal Extremity: COMMON NORMALS: normal to inspection GENERAL: Yes normal exam except as noted Neuro: RAY COMA SCALE: document GCS findings Ray coma scale eye opening: Spontaneous Onward coma scale verbal response: Orientated Onward coma scale motor response: Obey commands Ray coma scale total score: 15 COMMON NORMALS: patient oriented x3 SENSORIUM/ORIENTATION: Yes alert, Yes oriented to person, Yes oriented to place and Yes oriented to time MENINGEAL SIGNS: Yes no meningeal signs Skin: COMMON NORMALS: no rashes or lesions noted GENERAL SKIN EXAM: no rashes or lesions noted Course Vital Signs: Vital signs: Vital Signs Pulse Rate 66 07/24/22 08:48 Respiratory Rate 16 07/24/22 08:48 Blood Pressure 163/74 07/24/22 10:54 Pulse Oximetry 95 07/24/22 08:48 Oxygen Delivery Me thod 07/24/22 08:48 MDM - Abdominal Pain Medical Decision Making Patient here with abdominal pain/cramping and difficult defecation. She did report some dark stools at home however on her rectal exam here stool is normal in appearance and hemoccult is negative. Her vital signs are stable. Blood work is unremarkable. UA showing some hematuria. CT scan showing diffuse colonic edema consistent with colitis. We will go ahead and place her on Cipro and Flagyl and have her follow-up with primary care early next week. Return ED precautions given in regards to the weekend. Lab Data 07/24/22 09:17 07/24/22 09:17 Labs/Radiology: Radiology Impressions Abdomen/Pelvis CT 07/24/22 08:53 IMPRESSION: 1. Mild diffuse colonic submucosal edema with hyperemia of the mucosa. Findings consistent with a mild colitis. Likely infectious colitis. No free air. 2. A few scattered sigmoid diverticula without acute inflammation. 3. Stable RIGHT angiomyolipomas. 4. Prior cholecystectomy. Laboratory Results WBC 5.9 10^3/uL (4.0-10.0) 07/24/22 09:17 RBC 5.06 10^6/uL (4.1-5.3) 07/24/22 09:17 Hgb 13.9 g/dL (11.5-15.3) 07/24/22 09:17 Hct 44.4 % (37.0-47.0) 07/24/22 09:17 MCV 87.7 fl (81-99) 07/24/22 09:17 MCH 27.5 pg (28.0-34.0) L 07/24/22 09: MCHC 31.3 g/dL (30.0-36.0) 07/24/22 09:17 RDW 14.5 % (12.1-15.1) 07/24/22 09:17 Plt Count 233 10^3/cmm (130-400) 07/24/22 09:17 MPV 10.2 fL (7.4-10.4) 07/24/22 09:17 Neut % (Auto) 62.1 % 07/24/22 09:17 Lymph % (Auto) 24.4 % 07/24/22 09:17 Hardy % (Auto) 10.1 % 07/24/22 09:17 Eos % (Auto) 2.7 % 07/24/22 09:17 Baso % (Auto) 0.5 % 07/24/22 09:17 Neut # (Auto) 3.69 10^3/uL (1.8-7.7) 07/24/22 09:17 Lymph # (Auto) 1.5 10^3/uL (0.8-4.8) 07/24/22 09:17 Hardy # (Auto) 0.6 10^3/uL (0.2-0.9) 07/24/22 09:17 Eos # (Auto) 0.2 10^3/uL (0.0-0.8) 07/24/22 09:17 Baso # (Auto) 0.0 10^3/uL (0.0-0.1) 07/24/22 09:17 Nucleated RBC % (auto) 0 % 07/24/22: Nucleated RBCs # 0.0 /100WBC 07/24/22 09:17 Sodium 143 mmol/L (136-145) 07/24/22 09:17 Potassium 4.4 mmol/L (3.5-5.1) 07/24/22 09:17 Chloride 105 mmol/L (98-107) 07/24/22 09:17 Carbon Dioxide 27 mmol/L (22-29) 07/24/22 09:17 Anion Gap 15.4 (5-19) 07/24/22 09:17 BUN 9 mg/dL (8-23) 07/24/22 09:17 Creatinine 1.0 mg/dL (0.5-0.9) H 07/24/22 09:17 GFR Calculation Not Reportable 07/24/22 09:17 Glucose 107 mg/dL (65-115) 07/24/22 09:17 Calculated Osmolality 295 mOsm/kg (285-295) 07/24/22 09:17 Lactic Acid 1.0 mmol/L (0.5-2.2) 07/24/22 09:13 Calcium 9.3 mg/dL (8.5-10.5) 07/24/22 09:17 Total Bilirubin 0.4 mg/dL (0.15-1.2) 07/24/22 09:17 AST 18 U/L (0-32) 07/24/22 09:17 ALT 7 U/L (0-33) 07/24/22 09:17 Alkaline Phosphatase 71 U/L (35-105) 07/24/22 09:17 Total Protein 7.0 g/dL (6.6-8.7) 07/24/22 09:17 Albumin 3.9 g/dL (3.5-5.2) 07/24/22 09:17 Globulin 3.1 g/dL (1.3-4.6) 07/24/22 09:17 Lipase 23 U/L (13-60) 07/24/22 09:17 Urine Color Yellow (Yellow) 07/24/22 09:52 Urine Appearance Clear (CLEAR) 07/24/22 09:52 Urine pH 5 (5-7) 07/24/22 09:[address] 1.020 (1.005-1.030) 07/24/22 09:52 Urine Protein Neg (Negative) 07/24/22 09:52 Urine Glucose (UA) Norm (Normal) 07/24/22 09:52 Urine Ketones Negative (Negative) 07/24/22 09:52 Urine Blood 3+ (Negative) H 07/24/22 09:52 Urine Nitrate Negative (Negative) 07/24/22 09:52 Urine Bilirubin Neg (Negative) 07/24/22 09:52 Urine Urobilinogen Neg mg/dL (Negative) 07/24/22 09:52 Ur Leukocyte Esterase Negative (Negative) 07/24/22 09:52 Urine RBC 5-10 /hpf (0-2) H 07/24/22 09:52 Urine WBC None /hpf (0-5) 07/24/22 09:52 Ur Squamous Epith Cells 0-4 /hpf (0-5) H 07/24/22 09:52 Amorphous Sediment Not Reportable 07/24/22 09:52 Urine Bacteria Trace /hpf (NONE) 07/24/22 09:52 Urine Mucus 1+ /hpf 07/24/22 09:52 Discharge Plan Discharge Patient Disposition: Home Clinical Impression: Colitis Condition: Stable Prescriptions: New metronidazole 500 mg tablet 500 mg PO BID 7 Days Qty: 14 0RF Cipro 500 mg tablet 500 mg PO Q12H Qty: 14 0RF No Action nitroglycerin 0.4 mg tablet, sublingual 0.4 mg sublingual Q5M PRN (Reason: chest pain) Qty: 25 6RF Rx Instructions: do not exceed 3 doses per episode aspirin [Adult Low Dose Aspirin] 81 mg tablet,delayed release (DR/EC) 81 mg PO DAILY Qty: 30 0RF loratadine [Allergy Relief (loratadine)] 10 mg tablet 10 mg PO DAILY metoprolol tartrate 25 mg tablet 25 mg PO BID Qty: 60 11RF omeprazole 40 mg capsule,delayed release(DR/EC) 40 mg PO BID Qty: 60 12RF atorvastatin 20 mg tablet 20 mg PO DAILY Qty: 90 11RF levothyroxine 50 mcg capsule 50 mcg PO DAILY Qty: 30 12RF Rx Instructions: take 30 mins prior to other meds or food Discharge Orders: Discharge ED (Routine); Ordered 07/24/22 Ordered By: Luz Garza Referrals: Jonathan Bansal MD [Primary Care Provider] - Patient Instructions: Infectious Colitis (ED), Colitis (ED) Activity Restrictions/Additional Instructions: As we discussed please follow-up with your primary care office early next week for reevaluation. We need to see you back in the emergency department over the weekend for worsening or severe abdominal pain, fevers, repetitive episodes of vomiting, generally feeling worse or unwell, or any other concerns you may have. I hope you begin to feel better soon. Coding Level of Care Code ED Caustic Purification Operator for Madyson Barksdale
--- NOTE | 2022-07-24 08:53 | CT_ITS ---
WS: [id number] CT ABDOMEN AND PELVIS WITH CONTRAST HISTORY: ab pain/back pain, cramping, dark stools TECHNIQUE: Imaging performed of the abdomen and pelvis with IV contrast. Single phase imaging of the abdomen. Coronal and sagittal reformats are submitted. All CT scans at [facility] use at [address] one of these dose optimization techniques: automated exposure control; mA and/or kV adjustment per patient size (includes targeted exams where dose is matched to clinical indication); or iterative re construction. IV CONTRAST: Omnipaque 350; 100 mL IV. Oral contrast: No DLP: 967.53 mGy.cm COMPARISON: 11/15/2017 Lower thorax: Lung bases are clear. Heart is normal size. Small hiatal hernia. Liver/biliary system: Normal size with no intrahepatic dilatation. Gallbladder: Status post cholecystectomy. Pancreas: Normal size pancreas and pancreatic duct. No adjacent inflammation. Spleen: Normal size spleen. No mass or infarct. Adrenal glands: Normal. Right kidney: Normal size. No obstruction. Fat-containing mass is mid to lower kidney. The largest me asures 1.5 cm Previously described and consistent with angiomyolipomas. Left kidney: Normal. Aorta: Mild atherosclerosis with no aneurysm. Lymphadenopathy: None. Free fluid: None. GI tract: Nondistended stomach. No small bowel obstruction. Submucosal edema with mild mucosal enhanc ement throughout a large portion of the colon. There is a very small amount of pericolonic edema most significant on the RIGHT. Distal colon diverticula without acute diverticulitis. Anastomotic sutures at the rectum. Prior appendectomy. Abdominal wall: Unremarkable abdominal wall. No hernia. Pelvis: Normal uterus and ovaries for age. No free fluid or adenopathy. Bones: Severe disc space narrowing at L4-5. CT/CT abdomen pelvis w con* [id number] IMPRESSION: 1. Mild diffuse colonic submucosal edema with hyperemia of the mucosa. Finding s consistent with a mild colitis. Likely infectious colitis. No free air. 2. A few scattered sigmoid diverticula without acute inflammation. 3. Stable RIGHT angiomyolipomas. 4. Prior cholecystectomy.
[2022-07-24 09:26] LABS: Basophils % 0.5 %; Eosinophils # 0.2 10^3/uL (0.0-0.8); Eosinophils % 2.7 %; Hematocrit 44.4 % (37.0-47.0); Hemoglobin 13.9 g/dL (11.5-15.3); Lymphocytes # 1.5 10^3/uL (0.8-4.8); Lymphocytes % 24.4 %; Mean Corpuscular HGB Conc 31.3 g/dL (30.0-36.0); Mean Corpuscular Hemoglobin 27.5 pg (28.0-34.0); Mean Corpuscular Volume 87.7 fl (81-99); Mean Platelet Volume 10.2 fL (7.4-10.4); Monocytes # 0.6 10^3/uL (0.2-0.9); Monocytes % 10.1 %; Neutrophils # 3.69 10^3/uL (1.8-7.7); Neutrophils % 62.1 %; Nucleated Red Blood Cells % 0 %; Platelet Count 233 10^3/cmm (130-400); Red Blood Count 5.06 10^6/uL (4.1-5.3); Red Cell Distribution Width 14.5 % (12.1-15.1); White Blood Count 5.9 10^3/uL (4.0-10.0)
[2022-07-24 09:44] LABS: Alanine Aminotransferase 7 U/L (0-33); Albumin Level 3.9 g/dL (3.5-5.2); Alkaline Phosphatase 71 U/L (35-105); Anion Gap 15.4 (5-19); Aspartate Amino Transferase 18 U/L (0-32); Blood Urea Nitrogen 9 mg/dL (8-23); Calcium 9.3 mg/dL (8.5-10.5); Carbon Dioxide 27 mmol/L (22-29); Chloride 105 mmol/L (98-107); Globulin 3.1 g/dL (1.3-4.6); Glucose 107 mg/dL (65-115); Lipase 23 U/L (13-60); Osmolality Calculated 295 mOsm/kg (285-295); Potassium 4.4 mmol/L (3.5-5.1); Sodium 143 mmol/L (136-145); Total Bilirubin 0.4 mg/dL (0.15-1.2)
[2022-07-24 10:25] LABS: Add Urine Microscopic? YES; Bacteria Urine TRACE /hpf; Bilirubin Urine Neg (Negative); Blood Urine 3+ (Negative); Glucose Urine UA Norm (Normal); Ketones Urine Negative (Negative); Leukocyte Esterase Urine Negative (Negative); Mucus Urine 1+ /hpf; Nitrate Urine Negative (Negative); Protein Urine Neg (Negative); Squamous Epithelial Cell Urine 0-4 /hpf (0-5); Urine Appearance Clear (CLEAR); Urine Color Yellow (Yellow); Urobilinogen Urine Neg (Negative); pH Urine 5 (5-7)
[2022-07-24 10:26] LABS: Add Urine Culture? No
[2022-07-24 10:54] VITALS: BP 163/74
[2022-07-24] MEDS: iohexol 350 mg/mL 500 mL Btl (per mL) IV (10:55)
[2022-07-24 12:12] VITALS: BP 134/7; PULSE 74; RESP 18
== END 2022-07-24 12:14 | disposition home or self-care (01) ==
PROVIDERS: Emergency Provider Physician Assistant; PCP Family Medicine
DX: K52.9 Noninfective gastroenteritis and colitis, unspecified (principal); Z79.82 Long term (current) use of aspirin; K59.89 Other specified functional intestinal disorders; I25.10 Atherosclerotic heart disease of native coronary artery without angina pectoris; I11.0 Hypertensive heart disease with heart failure; I50.9 Heart failure, unspecified; J44.9 Chronic obstructive pulmonary disease, unspecified; E78.5 Hyperlipidemia, unspecified; Z85.89 Personal history of malignant neoplasm of other organs and systems
CPT/HCPCS: 36415; 74177; 80053; 81001; 83605; 83690; 85025; 99285; Q9967

== ENCOUNTER → 2022-08-11 11:27 | Outpatient (BNVA) | payer MEDICARE, SELFPAY | PROVIDERS: PCP Family Medicine; Visit Provider Family Medicine | DX: I50.9 Heart failure, unspecified (principal); K52.9 Noninfective gastroenteritis and colitis, unspecified; E03.9 Hypothyroidism, unspecified | CPT/HCPCS: 84443; 85025; 86140 ==

== ENCOUNTER 2022-08-21 21:10 | Emergency (ER) | payer MEDICARE, SELFPAY ==
[2022-08-21 21:17] VITALS: BP 147/95; PULSE 89; RESP 16; TEMP 36.6; O2SAT 96; BMI 37.5
--- NOTE | 2022-08-21 22:44 | ED_ITS ---
HPI - Fall General: Chief Complaint: Fall Stated Complaint: fall, right arm, right foot injury Time Seen by Provider: 08/21/22 22:36 History of Present Illness: Patient is a 77-year-old female who comes to the ED after fall injury. Injury occurred just prior to arrival. Patient says she was walking in her bathroom and slipped on the floor. Her left foot went forward and she fell backwards underneath her right foot causing injury to her right foot. She is unsure if she hit her head but denies any loss of consciousness. Most of her pain is in her right foot. She rates her pain currently a 10 out of 10. She has a hematoma to her right forearm. Denies any other neurological symptoms such as vision changes, numbness tingling or weakness to 1 part of her body or face. Associated symptoms-after fall: Denies abdominal pain, chest pain, headache(s), hematuria or neck pain Review of Systems Const: Denies: fever(s), chills or fatigue Eyes: Denies: change in vision or eye discomfort ENMT: Denies: throat pain, odynophagia, nasal discharge or nasal congestion Card: Denies: chest pain, palpitations, edema, swelling of feet/ankles, dyspnea on exertion or orthopnea Resp: Denies: dyspnea, productive cough or non-productive cough GI: Denies: abdominal pain, nausea, vomiting, diarrhea, constipation or hematochezia : Denies: flank pain, dysuria or hematuria Musc: Reports: extremity pain (Right foot and right forearm); Denies: neck pain, back pain or extremity swelling Skin/Breast: Denies: rash or new lesions Neuro: Denies: headache(s), numbness in extremities or weakness in extremities PFSH ED PFSH: Medical History Abnormal nuclear stress test Atherosclerosis of coronary artery CHF (congestive heart failure), NYHA class III COPD (chronic obstructive pulmonary disease) History of throat cancer HTN (hypertension) Hyperlipidemia Hypoglycemia Surgical History History of bowel resection History of coronary artery stent placement Hx of cholecystectomy Family History Mother Cancer Diabetes CAD (coronary artery disease) Family/Other Cancer Grandmother Diabetes Other Hypertension Social History Smoking and tobacco status: never smoked Alcohol intake: current Alcohol intake frequency: holidays/special occasions only Physical Exam Const: COMMON NORMALS: patient oriented x3 HENMT: COMMON NORMALS: normocephalic HEAD & SCALP: normocephalic MOUTH: Normal oral and palatal mucosa present THROAT: posterior oropharynx normal and uvula midline Eye: COMMON NORMALS: Equal, round and reactive pupils present and EOMs intact bilaterally GENERAL EYE: appearance normal, both eyes and all related structures PUPIL: Yes Equal, round and reactive pupils present Neck/C-Spine: COMMON NORMALS: supple GENERAL: Yes normal visual inspection Lymph: LYMPHATIC: no lymphadenopathy noted Resp: COMMON NORMALS: normal respiratory effort, No retractions, No use of accessory muscles and clear to auscultation bilaterally AUSCULTATION: clear to auscultation bilaterally Cardio: COMMON NORMALS: regular rate, regular rhythm, S1 normal heart sound present, S2 normal heart sound present, No gallops present (Cardio), No clicks present (Cardio), No murmurs present (Cardio) and Peripheral pulses 2+ throughout RATE: regular rate RHYTHM: regular rhythm HEART SOUNDS: S1 normal heart sound present and S2 normal heart sound present PERIPHERAL PULSES: Peripheral pulses 2+ throughout GI: COMMON NORMALS: Normal to inspection, nondistended, normoactive bowel sounds present, Soft to palpation, non-tender and no masses PALPATION: Yes Soft to palpation : COMMON NORMALS: Yes no CVA tenderness BLADDER/KIDNEY EXAM: Yes no CVA tenderness Back/Pelvis: COMMON NORMALS: no CVA tenderness Extremity: NARRATIVE EXTREMITY EXAM: Right foot?tenderness over midfoot region. Rest of exam is benign and no other deformities noted. Right forearm?2 cm hematoma around mid forearm. GENERAL: Yes normal exam except as noted Neuro: COMMON NORMALS: patient oriented x3, CN's II-XII intact bilaterally, moves all extremities, no focal motor deficits and no sensory deficits noted SENSORY EXAM: Yes extremities (intact) MOTOR EXAM: 5/5 motor strength present throughout Skin: COMMON NORMALS: no rashes or lesions noted GENERAL SKIN EXAM: no rashes or lesions noted and dry skin Course Vital Signs: Vital signs: Vital Signs Temperature 97.8 F 08/21/22 21:17 Pulse Rate 89 08/21/22 21:17 Respiratory Rate 16 08/21/22 21:17 Blood Pressure 150/73 08/22/22 00:48 Pulse Oximetry 96 08/21/22 21:17 Oxygen Delivery Me thod Room Air 08/21/22 21:17 MDM - Fall Medical Decision Making Patient is a 77-year-old female who comes to the ED after fall injury. Injury occurred just prior to arrival. Patient says she was walking in her bathroom and slipped on the floor. Her left foot went forward and she fell backwards underneath her right foot causing injury to her right foot. She is unsure if she hit her head but denies any loss of consciousness. Most of her pain is in her right foot. She rates her pain currently a 10 out of 10. She has a hematoma to her right forearm. Denies any other neurological symptoms such as vision changes, numbness tingling or weakness to 1 part of her body or face. Vitals stable. 2 cm hematoma around mid forearm. Right foot has tenderness over midfoot region but rest of exam is benign. Neuro exam shows no deficits. CT of head shows no acute findings. Right foot and right ankle x-ray show a possible small avulsion fracture of the anterior dorsum of the talar head. Forearm x-ray shows no acute fractures or findings. Patient was diagnosed with right forearm hematoma, right foot fracture and put in a posterior leg and stirrup splint. She was discharged home with some crutches as well. I placed order with case management for patient be referred to podiatry for follow-up. Strict return to ED precautions given if pain worsens over the next couple days and made her aware of possibility of developing compartment syndrome even though no symptoms present at this time. Patient understood and agreed with plan. Lab Data Radiology Impressions Ankle X-Ray 08/21/22 22:49 IMPRESSION: 1. Small calcific density over the anterior dorsum of the talar head on the lateral view, please correlate clinically for a possible small avulsion fracture in this area. 2. Calcified heel spur. 3. Chronic calcification at the tip of the medial malleolus. Foot X-Ray 08/21/22 22:49 IMPRESSION: 1. Small calcific density over the anterior dorsum of the talar head on the lateral view, please correlate clinically for a possible small avulsion fracture in this area. 2. Calcified heel spur. Forearm X-Ray 08/21/22 22:49 IMPRESSION: 1. Negative for fracture or dislocation. 2. Moderate 1st carpometacarpal joint osteoarthritis. 3. Soft tissue swelling over the posterior aspect of the distal forearm. Head CT 08/21/22 22:49 IMPRESSION: No acute intracranial abnormality. Discharge Plan Discharge Patient Disposition: Home Clinical Impression: Foot fracture, right Qualifiers: Encounter type: initial encounter Fracture type: closed Qualified Code(s): S92.901A - Unspecified fracture of right foot, initial encounter for closed fracture Traumatic hematoma of forearm Qualifiers: Encounter type: initial encounter Laterality: right Qualified Code(s): S50.11XA - Contusion of right forearm, initial encounter Condition: Stable Prescriptions: No Action nitroglycerin 0.4 mg tablet, sublingual 0.4 mg sublingual Q5M PRN (Reason: chest pain) Qty: 25 6RF Rx Instructions: do not exceed 3 doses per episode aspirin [Adult Low Dose Aspirin] 81 mg tablet,delayed release (DR/EC) 81 mg PO DAILY Qty: 30 0RF loratadine [Allergy Relief (loratadine)] 10 mg tablet 10 mg PO DAILY metoprolol tartrate 25 mg tablet 25 mg PO BID Qty: 60 11RF omeprazole 40 mg capsule,delayed release(DR/EC) 40 mg PO BID Qty: 60 12RF atorvastatin 20 mg tablet 20 mg PO DAILY Qty: 90 11RF metronidazole 500 mg tablet 500 mg PO TID Qty: 30 0RF ciprofloxacin HCl 500 mg tablet 500 mg PO BID Qty: 20 0RF epinephrine [EpiPen 2-Sincere] 0.3 mg/0.3 mL auto-injector 0.3 mg IM Q4H PRN (Reason: anaphylaxis) Qty: 2 1RF levothyroxine 50 mcg capsule 50 mcg PO DAILY Qty: 30 12RF Rx Instructions: take 30 mins prior to other meds or food Discharge Orders: Discharge ED (Routine); Ordered 08/22/22 Ordered By: Adriel Ragsdale Referrals: Jonathan Bansal MD [Primary Care Provider] - Discharge Diet: Regular Discharge Activity: Limit activity as instructed and Use walker/crutches as instructed Patient Instructions: Foot Fracture in Children (ED) Activity Restrictions/Additional Instructions: Follow-up with medical provider as directed. Case management should be contacting you in the next several days to set up an appointment with podiatry for follow-up on fracture. Return to the ER if pain worsens over the next couple days. Please read and understand discharge instructions. Thank you for choosing [facility] for your healthcare needs today. Please realize this is an emergency room and that we are providing you with a medical screening exam and this may not be complete and all inclusive of all the testing and or work up that you may need to determine your ailment or severity of your illness. It is very important that you follow up as instructed or that you return to the Emergency Department should you have concerns or if your condition changes or worsens in any way. Coding Level of Care Code ED Nurse Practitioner Per Diem for Madyson Barksdale
--- NOTE | 2022-08-21 22:49 | XRR_ITS ---
PROCEDURE INFORMATION: Exam: XR Right Forearm Exam date and time: 08/21/2022 11:07 PM Age: 77 years old Clinical indication: Injury or trauma; Fall; Blunt trauma (contusions or hematomas); Arm, lower; Right; Additional info: Fall injury with hematoma to forearm TECHNIQUE: Imaging protocol: Radiologic exam of the right forearm. Views: 2 views. COMPARISON: No relevant prior studies available. FINDINGS: Bones/joints: Moderate 1st carpometacarpal joint osteoarthritis. Soft tissues: Soft tissue swelling over the posterior aspect of the distal forearm. XR/XR forearm RT 2V [id number] IMPRESSION: 1. Negative for fracture or dislocation. 2. Moderate 1st carpometacarpal joint osteoarthritis. 3. Soft tissue swelling over the posterior aspect of the distal forearm.
--- NOTE | 2022-08-21 22:49 | XRR_ITS ---
PROCEDURE INFORMATION: Exam: XR Right Foot Exam date and time: 08/21/2022 11:07 PM Age: 77 years old Clinical indication: Injury or trauma; Fall; Blunt trauma; Foot; Right; Additional info: Fall injury TECHNIQUE: Imaging protocol: Radiologic exam of the right foot. Views: 3 or more views. COMPARISON: No relevant prior studies available. FINDINGS: Bones/joints: Small calcific density over the anterior dorsum of the talar head on the lateral view, please correlate clinically for a possible small avulsion fracture in this area. Calcified heel spur. Soft tissues: Normal. XR/XR foot RT min 3V* [id number] IMPRESSION: 1. Small calcific density over the anterior dorsum of the talar head on the lateral view, please correlate clinically for a possible small avulsion fracture in this area. 2. Calcified heel spur.
--- NOTE | 2022-08-21 22:49 | XRR_ITS ---
PROCEDURE INFORMATION: Exam: XR Right Ankle Exam date and time: 08/21/2022 11:07 PM Age: 77 years old Clinical indication: Injury or trauma; Fall; Blunt trauma; Ankle; Right; Additional info: Fall injury TECHNIQUE: Imaging protocol: Radiologic exam of the right ankle. Views: 3 or more views. COMPARISON: No relevant prior studies available. FINDINGS: Bones/joints: Small calcific density over the anterior dorsum of the talar head on the lateral view, please correlate clinically for a possible small avulsion fracture in this area. Calcified heel spur. Chronic calcification at the tip of the medial malleolus. Soft tissues: Normal. XR/XR ankle RT min 3V* [id number] IMPRESSION: 1. Small calcific density over the anterior dorsum of the talar head on the lateral view, please correlate clinically for a possible small avulsion fracture in this area. 2. Calcified heel spur. 3. Chronic calcification at the tip of the medial malleolus.
--- NOTE | 2022-08-21 22:49 | CTR_ITS ---
PROCEDURE INFORMATION: Exam: CT Head Without Contrast Exam date and time: 08/21/2022 11:21 PM Age: 77 years old Clinical indication: Injury or trauma; Fall; Blunt trauma (contusions or hematomas); Consciousness not specified; Additional info: Fall injury, on blood thinners TECHNIQUE: Imaging protocol: Computed tomography of the head without contrast. Radiation optimization: All CT scans at this facility use at least one of these dose optimization techniques: automated exposure control; mA and/or kV adjustment per patient size (includes targeted exams where dose is matched to clinical indication); or iterative reconstruction. REPORTING DATA: Count of CT and Cardiac NM exams in prior 12 months: This patient has received 2 known CTs and 0 known cardiac nuclear medicine studies in the 12 months prior to the current study. COMPARISON: CT head wo/w con [id number] 04/20/2016 9:55 AM RADIATION DOSE METRICS: Total DLP (mGy-cm): 1192.28 FINDINGS: Brain: Normal. No hemorrhage. Unremarkable white matter. No mass effect. Cerebral ventricles: No ventriculomegaly. Paranasal sinuses: Visualized sinuses are unremarkable. No fluid levels. Mastoid air cells: Visualized mastoid air cells are well aerated. Bones/joints: Unremarkable. No acute fracture. Soft tissues: Unremarkable. CT/CT head wo con* [id number] IMPRESSION: No acute intracranial abnormality.
[2022-08-21] MEDS: HYDROcodone-acetaminophen 5-325 mg Tablet 1 TAB PO (22:57)
[2022-08-22 00:48] VITALS: BP 150/73
--- NOTE | 2022-08-24 08:46 | DCPLANNER ---
Addendum entered by Alee Tan 08/28/22 08:55: Patient had a follow up appointment scheduled with ortho - patient did attend appointment. Addendum entered by Alee Tan 08/25/22 11:37: Patient has a follow up appointment scheduled for , August 27, 2022 at 3:[address] Carbone at ortho. Original Note: manager of sustainability had message to schedule a follow up appointment for patient with podiatry. manager of sustainability sent patients information to the front office staff at podiatry. Patients information will be printed and reviewed. Clinic will call patient with appointment information.
== END 2022-08-22 00:51 | disposition home or self-care (01) ==
PROVIDERS: Emergency Provider Physician Assistant; PCP Family Medicine
DX: S50.11XA Contusion of right forearm, initial encounter (principal); S92.901A Unspecified fracture of right foot, initial encounter for closed fracture; Z79.82 Long term (current) use of aspirin; I25.10 Atherosclerotic heart disease of native coronary artery without angina pectoris; I11.0 Hypertensive heart disease with heart failure; I50.9 Heart failure, unspecified; J44.9 Chronic obstructive pulmonary disease, unspecified; E78.5 Hyperlipidemia, unspecified; Z85.89 Personal history of malignant neoplasm of other organs and systems; W01.0XXA Fall on same level from slipping, tripping and stumbling without subsequent striking against object, initial encounter
CPT/HCPCS: 29515; 70450; 73090; 73610; 73630; 99284; E0114

== ENCOUNTER 2022-08-27 15:41 | Outpatient (CLI) | payer MEDICARE, SELFPAY | END 2022-08-27 15:42 | disposition home or self-care (01) | LOC: SPT 15:41 | PROVIDERS: PCP Family Medicine; Visit Provider Podiatrist Foot & Ankle Surgery | DX: Z46.89 Encounter for fitting and adjustment of other specified devices (principal); S92.251D Displaced fracture of navicular [scaphoid] of right foot, subsequent encounter for fracture with routine healing; X58.XXXD Exposure to other specified factors, subsequent encounter | CPT/HCPCS: 97760; 99203; L1902 ==

== ENCOUNTER → 2022-09-09 13:48 | Outpatient (BNVA) | payer MEDICARE, SELFPAY | PROVIDERS: PCP Family Medicine; Visit Provider Podiatrist Foot & Ankle Surgery | DX: S92.251A Displaced fracture of navicular [scaphoid] of right foot, initial encounter for closed fracture (principal); W19.XXXA Unspecified fall, initial encounter | CPT/HCPCS: 73630; 99213 ==

== ENCOUNTER → 2022-10-13 15:23 | Outpatient (BNVA) | payer MEDICARE, SELFPAY | PROVIDERS: PCP Family Medicine; Visit Provider Podiatrist Foot & Ankle Surgery | DX: S92.251A Displaced fracture of navicular [scaphoid] of right foot, initial encounter for closed fracture (principal); W19.XXXA Unspecified fall, initial encounter | CPT/HCPCS: 73610; 99213 ==

== ENCOUNTER → 2023-02-10 09:41 | Outpatient (BNVA) | payer MEDICARE, SELFPAY | PROVIDERS: PCP Family Medicine; Visit Provider Family Medicine | DX: I50.9 Heart failure, unspecified (principal); I25.10 Atherosclerotic heart disease of native coronary artery without angina pectoris; I10 Essential (primary) hypertension; E78.5 Hyperlipidemia, unspecified; R49.0 Dysphonia; J44.9 Chronic obstructive pulmonary disease, unspecified; E03.9 Hypothyroidism, unspecified; J06.9 Acute upper respiratory infection, unspecified; Z23 Encounter for immunization | CPT/HCPCS: 80053; 80061; 84443; 85025 ==

== ENCOUNTER 2023-04-29 08:47 | Outpatient (CLI) | payer MEDICARE, SELFPAY ==
--- NOTE | 2023-04-29 08:50 | MRR_ITS ---
PROCEDURE INFORMATION: Exam: MR Neck Without and With Contrast Exam date and time: 04/29/2023 9:17 AM Age: 78 years old Clinical indication: Condition or disease; Cancer; Other: Throat; Prior surgery; Surgery date: 1-6 months; Additional info: Localized swelling, mass lump, neck TECHNIQUE: Imaging protocol: Magnetic resonance imaging of the neck without and with contrast. Contrast material: MULTIHANCE; Contrast volume: 20 ml; Contrast route: INTRAVENOUS (IV); COMPARISON: CT neck w con* [id number] 05/19/2019 10:46 AM FINDINGS: Paranasal sinuses: There is mild paranasal sinus disease. Pharynx: Unremarkable. Larynx: Unremarkable. Salivary glands: Unremarkable. Prevertebral and retropharyngeal spaces: Unremarkable. Vasculature: Unremarkable. Lymph nodes: No lymphadenopathy. Soft tissues: Unremarkable. Bones/joints: Unremarkable. MR/MR orbit face neck wo/w* [id number] IMPRESSION: No evidence of acute process. No suspicious masses. Clinical scenario should determine the need for additional workup.
[2023-04-29] MEDS: gadobenate dimeglumine 20 mL vial IV (09:56)
== END 2023-04-29 08:48 | disposition home or self-care (01) ==
LOC: RAD 08:47
PROVIDERS: PCP Family Medicine; Visit Provider Specialist
DX: R22.1 Localized swelling, mass and lump, neck (principal)
CPT/HCPCS: 70543; A9577

== ENCOUNTER 2023-05-31 08:14 | Outpatient (CLI) | payer MEDICARE, SELFPAY ==
--- NOTE | 2023-05-31 08:19 | FL_ITS ---
WS: [id number] [place] barium swallow [id number] REASON FOR EXAM: LOCALIZED SWELLING MASS LUMP FLUOROSCOPY TIME: 1min [id number] # OF SPOT FILMS: Multiple FINDINGS: Patient was examined in the upright AP and lateral and the LAYNE supine position. Swallowing of barium was monitored fluoroscopically and documented with multiple spot films. No mass or mucosal abnormality identified in the hypopharynx. Cervical esophagus demonstrated tiny Zenker's diverticulum. No intrinsic or instrument sac mass effec t. No obstruction. No significant mass effect in the thoracic esophagus. Mild dysmotility with intermittent mild tertiary contractions. No significant retention of barium or reflux. No significant hiatal hernia or stricture. IMPRESSION: Minimal esophageal dysmotility as above.
== END 2023-05-31 08:15 | disposition home or self-care (01) ==
PROVIDERS: PCP Family Medicine; Visit Provider Specialist
DX: R22.1 Localized swelling, mass and lump, neck (principal)
CPT/HCPCS: 74220

== ENCOUNTER 2023-06-22 10:17 | Outpatient (CLI) | payer MEDICARE, SELFPAY ==
--- NOTE | 2023-06-22 | PETR_ITS ---
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 History of previous radiation therapy and chemotherapy. LABS AND CLINICAL REPORTS: Glucose: 123 mg/dl Treatment strategy for malignancy (PET staging): Initial Staging (PI) TECHNIQUE: Imaging protocol: Following at least four-hour fasting and following the injection of radiopharmaceutical, low dose CT images were obtained. Then, PET images were obtained. Attenuation corrected images were constructed using the CT scan. Fused images of PET and CT were reviewed. The standardized uptake values (SUV) reported below are maximum values within a region of interest, expressed in gm/ml. Exam includes orbital meatal line to mid-thigh. Radiopharmaceutical: 11.93 mCi F-18 FDG (Fluorodeoxyglucose), IV. Time of imaging post radiopharmaceutical administration: 1 hour Injection site: Left hand COMPARISON: PT PET Scan 07/24/2017 7:44 AM, CT abdomen and pelvis 07/24/2022, CT chest 02/23/2022, MRI neck 04/29/2023 FINDINGS: Tubes, catheters and devices: There is a surgical staple line in the sigmoid colon without elevated uptake at the anastomotic site. Brain: Visualized brain has normal physiologic uptake. Pharynx: No abnormal uptake. Larynx: No abnormal uptake. Lungs, pleura and trachea: No abnormal uptake. Heart: Normal physiologic uptake. Small pericardial effusion. Mediastinal space: No abnormal uptake. Liver: No abnormal uptake. Gallbladder and bile ducts: No abnormal uptake. Cholecystectomy clips are present. Pancreas: No abnormal uptake. Spleen: No abnormal uptake. Adrenal glands: No abnormal uptake. Kidneys and ureters: Normal physiologic uptake. 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 Unremarkable left kidney. Stomach and bowel: No abnormal uptake. There are scattered colonic diverticula. Vasculature: No abnormal uptake. There are diffuse atherosclerotic changes including within the coronary arteries. Lymph nodes: No abnormal uptake. No lymphadenopathy in the head, neck, chest, abdomen, pelvis, and extremities. Bones/joints: Mild, likely inflammatory uptake is present in the bilateral glenohumeral joint capsules associated with underlying primary osteoarthritic changes. An ossified body in the subcoracoid bursa on the right is noted. Degenerative changes are noted within the spine. Soft tissues: Benign-appearing, likely inflammatory uptake is noted in the region of the bilateral greater trochanteric bursae for example on the left, SUV max 3.9 without correlating lesions on the CT images. PET/PET skulltothi INITIAL [id number] IMPRESSION: 1. No evidence of radiotracer avid malignancy. 2. Small pericardial effusion. 3. Colonic diverticulosis. 4. Additional nonurgent findings as detailed above.
== END 2023-06-22 10:18 | disposition home or self-care (01) ==
LOC: RAD 10:17
PROVIDERS: PCP Family Medicine; Visit Provider Specialist
DX: C01 Malignant neoplasm of base of tongue (principal); Z92.3 Personal history of irradiation; Z92.21 Personal history of antineoplastic chemotherapy; I31.39 Other pericardial effusion (noninflammatory); K57.90 Diverticulosis of intestine, part unspecified, without perforation or abscess without bleeding
CPT/HCPCS: 78815; A9552

== ENCOUNTER → 2024-02-09 11:03 | Outpatient (BNVA) | payer MEDICARE, SELFPAY | PROVIDERS: PCP Family Medicine; Visit Provider Family Medicine | DX: I10 Essential (primary) hypertension (principal); E78.5 Hyperlipidemia, unspecified; E03.9 Hypothyroidism, unspecified; J44.9 Chronic obstructive pulmonary disease, unspecified; I50.9 Heart failure, unspecified; E11.9 Type 2 diabetes mellitus without complications | CPT/HCPCS: 80053; 80061; 84443; 85025 ==

== ENCOUNTER → 2024-05-17 16:29 | Outpatient (BNVA) | payer MEDICARE, SELFPAY | PROVIDERS: PCP Family Medicine; Visit Provider Internal Medicine Cardiovascular Disease | DX: I25.10 Atherosclerotic heart disease of native coronary artery without angina pectoris (principal); I50.9 Heart failure, unspecified; I10 Essential (primary) hypertension; R06.02 Shortness of breath | CPT/HCPCS: 36415; 80048; 83880 ==

== ENCOUNTER → 2024-06-06 12:05 | Outpatient (BNVA) | payer MEDICARE, SELFPAY | PROVIDERS: PCP Nurse Practitioner; Visit Provider Nurse Practitioner | DX: E03.9 Hypothyroidism, unspecified (principal); R73.9 Hyperglycemia, unspecified | CPT/HCPCS: 83036; 84439; 84443; 84481 ==

== ENCOUNTER → 2024-06-07 13:29 | Outpatient (BNVA) | payer MEDICARE, SELFPAY | PROVIDERS: PCP Nurse Practitioner; Visit Provider Nurse Practitioner Family | DX: R07.9 Chest pain, unspecified (principal); I10 Essential (primary) hypertension; I50.9 Heart failure, unspecified; R94.39 Abnormal result of other cardiovascular function study; E78.2 Mixed hyperlipidemia; I25.118 Atherosclerotic heart disease of native coronary artery with other forms of angina pectoris | CPT/HCPCS: 36415; 80048; 93005; 99214 ==

== ENCOUNTER 2024-06-09 09:11 | Outpatient (CLI) | payer MEDICARE, SELFPAY ==
--- NOTE | 2024-06-09 10:00 | USCV_ITS ---
John Adams Age: 79 Gender: F : 1945 Exam Date: 06/09/2024 10:06 Ordering Phys: Rayna Betancourt MD ([email or web address]) Technologist: Stephen Rayo [place] [facility] [place]: CHF BP: 128 / 85 HR: 55 Rhythm: Sinus Technical Quality: Adequate MEASUREMENTS (Male / Female) Normal Values 2D ECHO LVOT Diameter 2.0 cm LV Ejection Fraction MOD 4C 69.0 % LV Ejection Fraction MOD 2C 66.4 % LV Ejection Fraction 2C AL 67.0 % LA Diameter 3.4 cm RA Systolic Volume 4C AL 32.9 ml RA Systolic Volume 4C MOD 31.7 ml LA Sys Volume AL 44.9 cm cubed LA Sys Volume Index AL 21.8 cm cubed/m squared Aorta at Sinotubular Diameter 2.7 cm IVC Diameter 1.6 cm M-MODE LA Ao Ratio MM 2.2 AV Cusp Separation MM 0.9 cm DOPPLER AV Peak Velocity 126.0 cm/s LVOT Peak Velocity 81.0 cm/s AV Area Cont Eq vti 2.1 cm squared AV Area Cont Eq pk 2.1 cm squared MV Peak Velocity 110.0 cm/s MV Area PHT 4.1 cm squared Mitral E to A Ratio 0.8 TR Peak Velocity 276.0 cm/s TR Peak Gradient 30.5 mmHg TR Mean Velocity 208.0 cm/s TR Mean Gradient 19.3 mmHg TR Velocity Time Integral 94.2 cm PV Peak Velocity 65.0 cm/s RV Ejection Time 0.3 s FINDINGS Left Ventricle Normal left ventricular size, systolic function and wall thickness, with no regional wall motion abnormalities. Left ventricular ejection fraction is estimated at 60 %. Grade I/IV diastolic dysfunction (abnormal relaxation filling pattern), normal to mildly elevated filling pressures. Right Ventricle The right ventricle is normal in size and function. Right Atrium The right atrium is normal in size. Left Atrium The left atrium is normal in size. Mitral Valve Moderately thickened mitral valve. Moderate mitral annular calcification. No mitral valve stenosis. Mild mitral valve regurgitation. Aortic Valve Moderate aortic valve calcification. Mild aortic valve stenosis, mean gradient 3.1 mmHg, RALPH 2.1 cm squared. Trace aortic valve regurgitation. Tricuspid Valve Structurally normal tricuspid valve without significant stenosis or regurgitation. Pulmonic Valve Structurally normal pulmonic valve without significant stenosis. There is no pulmonic regurgitation. Pericardium Normal pericardium without effusion. Aorta Normal ascending aorta dimension. IVC The inferior vena cava appears normal. CONCLUSIONS Normal left ventricular size, systolic function and wall thickness, with no regional wall motion abnormalities. Left ventricular ejection fraction is estimated at 60 %. Grade I/IV diastolic dysfunction (abnormal relaxation filling pattern), normal to mildly elevated filling pressures. Moderately thickened mitral valve. Moderate mitral annular calcification. No mitral valve stenosis. Mild mitral valve regurgitation. Moderate aortic valve calcification. Mild aortic valve stenosis, mean gradient 3.1 mmHg, RALPH 2.1 cm squared. Trace aortic valve regurgitation. There is no pericardial effusion. Right atrial pressure is around 5 mm of mercury. Rayna Betancourt MD (Electronically Signed) Final Date: 09 June 2024 15:47 S
== END 2024-06-09 09:12 | disposition home or self-care (01) ==
PROVIDERS: PCP Nurse Practitioner; Visit Provider Internal Medicine Cardiovascular Disease
DX: I50.9 Heart failure, unspecified (principal); R06.02 Shortness of breath; R93.1 Abnormal findings on diagnostic imaging of heart and coronary circulation; I34.81 Nonrheumatic mitral (valve) annulus calcification; I34.0 Nonrheumatic mitral (valve) insufficiency; I35.8 Other nonrheumatic aortic valve disorders; I35.0 Nonrheumatic aortic (valve) stenosis
CPT/HCPCS: 93306

== ENCOUNTER → 2024-06-12 09:57 | Outpatient (BNVA) | payer MEDICARE, SELFPAY | PROVIDERS: PCP Nurse Practitioner; Visit Provider Internal Medicine Cardiovascular Disease | DX: I50.9 Heart failure, unspecified (principal); R94.39 Abnormal result of other cardiovascular function study | CPT/HCPCS: 80048 ==

== ENCOUNTER 2024-07-05 09:15 | Outpatient (CLI) | payer MEDICARE, SELFPAY ==
--- NOTE | 2024-07-05 | ECG_ITS ---
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 Interpretive Statements LEXISCAN: Procedure: At the baseline, the blood pressure was 151/84 mmHg with a heart rate of 60 bpm. The electrocardiogram showed normal sinus rhythm, normal axis with normal ST and T's. The Lexiscan was infused over a period of 20 seconds. A total of 0.4 mg of Lexiscan was infused. The stress phase was continued for a total of 5 minutes. Heart rate was at the end of stress phase was 74 bpm and a blood pressure of 139/86 mmHg. The EKG at the peak infusion revealed normal sinus rhythm with no significant ST-T wave changes. Sestamibi was injected 20 seconds after the Lexiscan infusion. Blood pressure at the end of recovery phase was 158/89mmHg with a heart rate of 89 bpm. Conclusion: 1. Normal EKG response to Lexiscan infusion 2. No Lexiscan induced chest pain or cardiac arrhythmia. 3. Normal blood pressure and heart rate response. 4. Sestamibi/sestamibi perfusion scan pending; see separate report. Electronically Signed On 07-25-2024 22:27:38 CDT by Gilson Bedoya M.D. [email or web address]
[2024-07-05 09:29] VITALS: BMI 36.6
--- NOTE | 2024-07-05 09:34 | NMCV_ITS ---
NM radha perf SPECT r/s* [id number] John Adams Age: 79 Gender: F : 1945 Exam Date: 07/05/2024 10:29 Ordering Phys: Luz Romano NP Technologist: TURNER Wheeler Exam Location: [facility] Indications: cp STRESS TEST Please see separate stress test report [facility] for full findings IMAGE PROTOCOL Rest/Stress 1 Lexiscan Day Radiopharmaceutical Dose (mCi) Administration Site Administered by Rest: Tc-99m 10.6 IV TURNER Wheeler Sestamibi Stress:Tc-99m 32.8 IV TURNER Soriano Sestamibi Rest: 05-Jul-2024 60 Discovery 630 Stress: 05-Jul-2024 30 Discovery 630 0.4mg Lexiscan. Supine position only as patient was unable to lay prone. Patient unable to lift her left arm above her head. SPECT RESULTS Technical Quality: Good Raw Data Analysis: Normal Image Corrections: No attenuation or motion correction applied Summed Stress Score: 9 Summed Rest Score: 12 Summed Difference Score: 0 PERFUSION FINDINGS Large areas of fixed perfusion defects seen in the apical, apical inferior and apical lateral marrero. 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 No evidence of ischemia FUNCTIONAL RESULTS (calculated via Gated SPECT) Stress Image LV EF (%): 80 Stress EDV (mL):66 TID: 1.03 Stress ESV (mL):13 FUNCTIONAL FINDINGS: There is normal left ventricular systolic function. IMPRESSIONS 1. 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 No evidence of ischemia 2. LV systolic function is normal Gilson Bedoya MD (Electronically Signed) Final Date: 10 July 2024 21:48 S
[2024-07-05] MEDS: regadenoson 0.4 Mg/5 ml Syringe IVP (11:00)
[2024-07-05 11:14] VITALS: BP 158/89; PULSE 69
== END 2024-07-05 09:16 | disposition home or self-care (01) ==
PROVIDERS: PCP Nurse Practitioner; Visit Provider Nurse Practitioner Family
DX: R07.9 Chest pain, unspecified (principal)
CPT/HCPCS: 36415; 78452; 93017; 96374; A9500; J2785

== ENCOUNTER 2024-08-15 10:00 | Outpatient (CLI) | payer MEDICARE, SELFPAY ==
--- NOTE | 2024-08-15 10:20 | MM_ITS ---
WS: [id number] VIEWS: MLO and CC views both breasts. 3D digital tomosynthesis is also included in this exam. Comparison made with prior exam of 07/05/2015 and 10/04/2018. Findings: There are scattered areas of fibroglandular density. No suspicious mass, tumor calcification or architectural distortion noted. MM/MM scr BI tomosynthesis [id number] Impression: BI-RADS: 2 - Benign. FOLLOW-UP: 1 Year Follow-up This mammogram was also analyzed by the Computer Aided Detection System R2 Imag e Rotary Lithographic Press Operator.
== END 2024-08-15 10:01 | disposition home or self-care (01) ==
PROVIDERS: PCP Nurse Practitioner; Visit Provider Nurse Practitioner
DX: Z12.31 Encounter for screening mammogram for malignant neoplasm of breast (principal); R92.323 Mammographic fibroglandular density, bilateral breasts
CPT/HCPCS: 77063; 77067

== ENCOUNTER → 2024-08-21 14:23 | Outpatient (BNVA) | payer MEDICARE, SELFPAY | PROVIDERS: PCP Nurse Practitioner; Visit Provider Internal Medicine Cardiovascular Disease | DX: I13.0 Hypertensive heart and chronic kidney disease with heart failure and stage 1 through stage 4 chronic kidney disease, or unspecified chronic kidney disease (principal); N18.9 Chronic kidney disease, unspecified; I50.9 Heart failure, unspecified; I25.118 Atherosclerotic heart disease of native coronary artery with other forms of angina pectoris; R31.9 Hematuria, unspecified; R94.5 Abnormal results of liver function studies; Z79.82 Long term (current) use of aspirin; Z95.5 Presence of coronary angioplasty implant and graft; I25.2 Old myocardial infarction | CPT/HCPCS: 99214 ==

== ENCOUNTER → 2024-10-12 11:47 | Outpatient (BNVA) | payer MEDICARE, SELFPAY | PROVIDERS: PCP Nurse Practitioner; Visit Provider Nurse Practitioner | DX: I25.10 Atherosclerotic heart disease of native coronary artery without angina pectoris (principal); E78.5 Hyperlipidemia, unspecified; E03.9 Hypothyroidism, unspecified; I10 Essential (primary) hypertension; Z85.819 Personal history of malignant neoplasm of unspecified site of lip, oral cavity, and pharynx; I50.9 Heart failure, unspecified; E78.2 Mixed hyperlipidemia; R73.9 Hyperglycemia, unspecified | CPT/HCPCS: 80053; 80061; 83036; 84443 ==